=== PATIENT | female | born 1950 | race American Indian/Alaskan Native ===

== ENCOUNTER 2019-06-05 14:22 | Outpatient (CLI) | payer MEDICARE ==
--- NOTE | 2019-06-05 15:14 | Ultrasound Report ---
LEFT LIMITED BREAST ULTRASOUND INDICATION: Follow-up evaluation from benign left axillary lymph node biopsy performed at an outside facility COMPARISON: Outside imaging performed 04/08/2019. We have a report describing a left axillary lymph no de biopsy performed on at an outside facility, however images are not available FINDINGS: Targeted ultrasound of the left axilla was performed. There are at least four abnormal left axillary lymph nodes which demonstrate cortical thickness measuring up to 4.8 mm in maximal thickness. The cor tices demonstrate uniform thickness without evidence of eccentric thickening. A thin linear hyperecho ic structure is noted in one of these lymph nodes and this likely represent a biopsy marker at the si te of an outside biopsy which is reported to have revealed nonnecrotizing granulomatous inflammation. Per outside report and recent imaging performed 04/08/2019, there appears no interval detrimental lian nge or new suspicious finding. IMPRESSION: No significant change in mildly enlarged left axillary lymph nodes which demonstrate uniform cortical thickness. One of these was biopsied at an outside facility and was found to represent nonnecrotizin g granulomatous inflammation. Patient will be due for her annual mammogram in September 2019. A targeted l eft axillary ultrasound is recommended that time. BI-RADS Category 3: Probably Benign. Signer Name: Hussain Lewis MD Signed: 06/05/2019 3:09 PM Workstation Name: [id number]
== END 2019-06-05 14:23 | disposition home or self-care (01) ==
LOC: SPVWC 14:22
PROVIDERS: ATTEND Surgery
DX: Z09 Encounter for follow-up examination after completed treatment for conditions other than malignant neoplasm (principal); L92.9 Granulomatous disorder of the skin and subcutaneous tissue, unspecified